=== PATIENT | female | born 1985 | race Caucasian/White ===

== ENCOUNTER 2017-04-03 19:55 | Emergency (ER) | payer OTHER ==
[~2017-04-03] VITALS: Ht 160 cm; Wt 74.8 kg
[2017-04-03] MEDS ORDERED: TRAMADOL HCL50 MG PO (22:18)
== END 2017-04-03 22:29 | disposition home or self-care (01) ==
LOC: ED 19:55
DX: S30.0XXA Contusion of lower back and pelvis, initial encounter (principal); W10.9XXA Fall (on) (from) unspecified stairs and steps, initial encounter
CPT/HCPCS: 72131; 81001; 84703; 99284

== ENCOUNTER 2017-06-22 09:18 | Emergency (ER) | payer OTHER ==
[~2017-06-22] VITALS: Ht 160 cm; Wt 74.8 kg
[~2017-06-22 09:18] MED LIST: TRAMADOL HCL50 MG PO
== END 2017-06-22 11:10 | disposition home or self-care (01) ==
LOC: ED 09:18
DX: S01.01XA Laceration without foreign body of scalp, initial encounter (principal); W22.8XXA Striking against or struck by other objects, initial encounter; Y99.0 Civilian activity done for income or pay
CPT/HCPCS: 99282

== ENCOUNTER 2017-08-22 10:30 | Emergency (ER) | payer OTHER ==
[~2017-08-22] VITALS: Ht 160 cm; Wt 78.5 kg
--- OUTSIDE RECORDS SUMMARY | ~2017-08-22 | XMS | Clinical Summary ---
Demographics + + + | Address | [address] | | | [place] [address] | + + + | Home Phone | | + + + | Preferred Language | Unknown | + + + | Marital Status | | + + + | Catholic Affiliation | 1013 | + + + | Race | Unknown | + + + | Ethnic Group | Unknown | + + + Author + + + | Author | [facility] | | | and [facility] | + + + | Organization | [facility] | | | and [place] | + + + | Address | Unknown | + + + | Phone | Unavailable | + + + Care Team Providers + +------+ + | Care Sponge Fisherman Name | Role | Phone | + +------+ + | No, Physician | PP | Unavailable | + +------+ + Allergies Not on File Current Medications Not on file Active Problems Not [...] on file | | + + + Last Filed Vital Signs + + + + | Vital Sign | Reading | Time Taken | + + + + | Blood Pressure | 128/78 | 09/27/2016 0809 PDT | + + + + | [...] | Body Mass Index | 35.04 | 09/27/2016808 PDT | + + + + Plan of Treatment + + + + + | Health Maintenance | Due Date | Last Done | Comments | + + + + + | Vaccine: | | | | | Dtap/Tdap/Td (1 - | 2 | | | | Tdap) | | | | + + + + + | CERVICAL CANCER | | | | | SCREENING (PAP EVERY | 4 | | | | 3 YEARS 21-64 ) | | | | + + + + + | Vaccine: Influenza | | | | | (Season Ended) | 8 | | | + + + + + Results Not on filefrom Last 3 Months
--- OUTSIDE RECORDS SUMMARY | ~2017-08-22 | XMS | Clinical Summary ---
Demographics + + + | Address | [address] | | | [place] [address] | + + + | Home Phone | | + + + | Preferred Language | Unknown | + + + | Marital Status | | + + + | Quaker Affiliation | 1013 | + + + | Race | Unknown | + + + | Ethnic Group | Unknown | + + + Author + + + | Author | [facility] | | | and [facility] | + + + | Organization | [facility] | | | and [place] | + + + | Address | Unknown | + + + | Phone | Unavailable | + + + Care Team Providers + +------+ + | Care Fish Icer Name | Role | Phone | + [...]
== END 2017-08-22 10:44 | disposition home or self-care (01) ==
LOC: ED 10:30
DX: R21 Rash and other nonspecific skin eruption (principal)

== ENCOUNTER 2017-10-12 16:59 | Emergency (ER) | payer MEDICAID ==
[~2017-10-12] VITALS: Ht 160 cm; Wt 78.5 kg
[2017-10-12] MEDS ORDERED: KEFLEX500 MG PO (18:15)
[2017-10-12] MEDS ORDERED: ZOFRAN ODT4 MG PO (18:15)
== END 2017-10-12 19:25 | disposition home or self-care (01) ==
LOC: ED 16:59
DX: O23.41 Unspecified infection of urinary tract in pregnancy, first trimester (principal); O21.9 Vomiting of pregnancy, unspecified; Z3A.08 8 weeks gestation of pregnancy
CPT/HCPCS: 81001; 84703; 87077; 87088; 87186; 96361; 96374; 96375; 99283; J0696; J2405; J7030

== ENCOUNTER 2018-05-10 19:48 | Inpatient (IN) | payer OTHER ==
[~2018-05-10 19:48] MED LIST changes: +KEFLEX500 MG PO; +ZOFRAN ODT4 MG PO
--- NOTE | 2018-05-11 00:12 | NUR ---
05/11/18 Ari2 [address] 6715-PATIENT ARRIVED TO PACU ON RA AWAKE DROWSY DENIES PAIN OR NAUSEA. SR. DAD AT BEDSIDE. FUNDUS MIDLINE FIRM 1 BELOW UMBILICUS LIGHT RUBRA DRAINAGE ON PRATIBHA PAD. FBC RN AT BEDSIDE HELPING MOM BREAST FEED. MOM REPORTS A LITTLE ITCHING TO FACE DENIES NEED FOR MEDICATION. IVF INFUSING WITH 20 PITOCIN TO LEFT ARM CDI.
--- NOTE | 2018-05-11 08:18 | OR ---
[facility] [address] [place], [place] [address] Signed DATE OF OPERATION: 05/10/2018 SURGEON: Li Downey MD PREOPERATIVE DIAGNOSES: Term , active labor, previous section xs 3, undesired fertility. POSTOPERATIVE DIAGNOSES: Term , active labor, previous section xs 3, undesired fertility, delivered. PROCEDURE PERFORMED: Repeat section with low segment transverse uterine incision, bilateral salpingectomy. ANESTHESIA: Spinal. ESTIMATED BLOOD LOSS: 600 mL. DRAINS: Roche catheter. INDICATIONS AND FINDINGS: The patient is a 33-year-old female, 4, para 3, admitted at 39 weeks in active labor. The patient had previously been counseled and had tubal ligation approved. At the time of surgery, she was delivered of a little girl via lower segment transverse uterine incision from the ROP position with Apgars of 9 and 9 and weight of 7 pounds 2 ounces. The lower segment was extremely thin. There was significant scarring in the fascial flaps. Both tubes were normal as were the ovaries and placenta. DESCRIPTION OF PROCEDURE: The patient was prepped and draped in the supine position. Prior Pfannenstiel scar was removed sharply. The incision was then carried down through the fascia and the incision extended laterally. The inferior and superior fascial flaps were then created with some difficulty because of scarring. The muscles were sharply dissected and the peritoneum entered at this time and the incision extended superiorly and inferiorly. The Theo retractor was placed. The uterine wall was scored and entered at the upper aspect of the peritoneal reflection. The uterine wall was extremely thin. The baby was delivered Electronically Signed By: LI DOWNEY MD 05/11/18 0818 PATIENT NAME: LAUREN LIMON OPERATIVE REPORT DATE OF : 81 REPORT #: [id number] PHYSICIAN: LI DOWNEY MD PCP: LEEROY CHUNG MD REPORT IS CONFIDENTIAL AND NOT TO BE RELEASED WITHOUT AUTHORIZATION [facility] [address] [place], [place] [address] Signed with the above findings and handed off to the pediatric staff in attendance. The placenta was removed manually and the uterus explored with a lap tape assuring no remaining fragments. The edges of the incision were identified and the uterus was closed in a single layer of 0 Monocryl. Good hemostasis was noted at that point. Pressure was applied to the incision and tubal ligation was begun. The patient's left tube was identified and windows in the mesosalpinx were created and the specimen removed with serial clamps of hemostat and division of the mesosalpinx. Each of these were then tied with free ties of 0 Vicryl. This excised the entire tube. An additional tie was required at the distal end as there was some bleeding. Following this, the same procedure was carried out on the patient's right side. Again, windows were created in the mesosalpinx and the mesosalpinx divided and the specimen excised. Each of the sections were tied with free ties of 0 Vicryl. Again, good hemostasis was noted. At this point, the left tubal ligation site was reinspected and found to be hemostatic as was the right. Evicel was placed over the tubal ligation sites to aid in hemostasis. The uterine incision was reexamined and found to be hemostatic. The abdomen was copiously irrigated and Evicel was placed over the uterine incision to aid in hemostasis as well. The retractor was removed and the peritoneum identified. An ACell graft was laid over the lower segment to aid in healing. The peritoneum was then closed with a running suture of 3-0 Vicryl. The muscles were brought together with interrupted sutures of 0 Vicryl. Bleeding points were controlled on the muscle. This layer was then irrigated and inspected and hemostasis was noted. ACell powder was sprinkled over the muscles to aid in healing. The fascia was then completely closed from each angle to the midline with a running suture of 0 Vicryl. The subcutaneous tissue was irrigated and bleeding points controlled with cautery. The tension was released on the lower portion of the incision to allow it to reapproximate better. The skin was closed with shaista. All sponge and needle counts were correct. The patient was taken to the recovery room in good condition. Li Downey MD PJW/MODL /[id number] cc: Leeroy Chung MD Electronically Signed By: LI DOWNEY MD 05/11/18 0818 PATIENT NAME: LAUREN LIMON OPERATIVE REPORT DATE OF : 81 REPORT #: [id number] PHYSICIAN: LI DOWNEY MD PCP: LEEROY CHUNG MD REPORT IS CONFIDENTIAL AND NOT TO BE RELEASED WITHOUT AUTHORIZATION [place] [address] Signed Copies: LEEROY CHUNG MD ~ Electronically Signed By: LI DOWNEY MD 05/11/18 0818 PATIENT NAME: LAUREN LIMON OPERATIVE REPORT DATE OF : 81 REPORT #: [id number] PHYSICIAN: LI DOWNEY MD PCP: LEEROY CHUNG MD REPORT IS CONFIDENTIAL AND NOT TO BE RELEASED WITHOUT AUTHORIZATION
--- NOTE | 2018-05-12 08:46 | PR ---
[facility] [address] [place], [place] [address] Signed PP Progress Notes Datetime Report Generated by KAYLIN: 05/12/2018 08:46 SUBJECTIVE: [id number] Pain: Within normal limits Pain Comments: Feels lightheaded when sitting up. Denies vertigo. Nausea/Vomiting: Denies Nausea/Vomiting Comments: DAVISON this am. Normally has coffee in am. Flatus: Yes Vital Signs: [id number] Vital Signs: Reviewed; Within Normal Limits EXAM: [id number] Cardiovascular: Normal Respiratory: Normal Abdomen/Uterus: Abnormal Lochia: Normal Vulva/Perineum: Not Done Breasts: Not Done CVA Tenderness: Not Done Extremities: Normal Incision: Normal Progress: Normal Exam Comments: Abdomen with active BS. Fundus firm, sl tender at U-1. H/H 8.9/27.1, WBC 6.7, plat 136k IMPRESSION/PLAN/PROCEDURES: [id number] Impression: Normal progression Other Impression: lt headed when up Other Plans: increase ambulation, shower, coffee Progress Notes: Overall doing well though ltheaded when up. Her H/H did not have significant drop and no vertigo at this time. Will increase ambulation slowly. She has DAVISON which is probably caffeine withdrawal. Signing Physician: Li Downey MD Copies: ~ *Electronically Signed* 05/12/18 0846 LI DOWNEY MD PATIENT NAME: LAUREN LIMON PROGRESS NOTE DATE OF : 81 PHYSICIAN: LI DOWNEY MD RPT #: [id number] REPORT IS CONFIDENTIAL AND NOT TO BE RELEASED WITHOUT AUTHORIZATION
--- NOTE | 2018-05-13 09:39 | PR ---
[facility] [address] [place], [place] [address] Signed PP Progress Notes Datetime Report Generated by CPJayson: 05/13/2018 09:39 SUBJECTIVE: [id number] Pain: Within normal limits Pain Comments: Taking quite a bit of oxycodone for pain Nausea/Vomiting: Denies Nausea/Vomiting Comments: DAVISON this am. Normally has coffee in am. Flatus: Yes Vital Signs: [id number] Vital Signs: Reviewed; Within Normal Limits EXAM: [id number] Cardiovascular: Not Done Respiratory: Not Done Abdomen/Uterus: Abnormal Lochia: Normal Vulva/Perineum: Not Done Breasts: Not Done CVA Tenderness: Not Done Extremities: Normal Incision: Normal Progress: Normal Exam Comments: Abdomen with active BS. Fundus firm, NT @ U-1. IMPRESSION/PLAN/PROCEDURES: [id number] Impression: Normal progression Other Impression: lt headed when up Plan: Discharge Other Plans: increase ambulation, shower, coffee Procedures: None Progress Notes: Doing well though has been taking quite a bit of narcotics. She is stable for D/C. Signing Physician: Li Downey MD Copies: ~ *Electronically Signed* 05/13/18 0939 LI DOWNEY MD PATIENT NAME: LAUREN LIMON PROGRESS NOTE DATE OF : 81 PHYSICIAN: LI DOWNEY MD RPT #: [id number] REPORT IS CONFIDENTIAL AND NOT TO BE RELEASED WITHOUT AUTHORIZATION
== END 2018-05-13 14:10 | disposition home or self-care (01) | DRG 785 ==
LOC: FBCO 19:48 → FBC 21:35
PROVIDERS: ADMIT Obstetrics & Gynecology
PROC: 0UT70ZZ Resection of Bilateral Fallopian Tubes, Open Approach (ICD-10-PCS; 2018-05-10)
PROC: 10D00Z1 Extraction of Products of Conception, Low, Open Approach (ICD-10-PCS; principal; 2018-05-10 23:20)
DX: O34.211 Maternal care for low transverse scar from previous cesarean delivery (principal); N85.8 Other specified noninflammatory disorders of uterus; Z3A.39 39 weeks gestation of pregnancy; Z37.0 Single live birth; Z30.2 Encounter for sterilization; O69.81X0 Labor and delivery complicated by cord around neck, without compression, not applicable or unspecified; O28.2 Abnormal cytological finding on antenatal screening of mother; O99.89 Other specified diseases and conditions complicating pregnancy, childbirth and the puerperium; R51 Headache
CPT/HCPCS: 01961; 36415; 59025; 85027; 88302; 99213; C1763; J0690; J1200; J2274; J2300; J2405; J2590; J3010; J7120

== ENCOUNTER 2018-09-28 17:03 | Emergency (ER) | payer BC ==
[~2018-09-28] VITALS: Ht 160 cm; Wt 71.2 kg
--- OUTSIDE RECORDS SUMMARY | ~2018-09-28 | XMS | Clinical Summary ---
Demographics + + + | Address | [address] | | | [place] [address] | + + + | Home Phone | | + + + | Preferred Language | Unknown | + + + | Marital Status | | + + + | Sabianist Affiliation | 1013 | + + + | Race | Unknown | + + + | Ethnic Group | Unknown | + + + Author + + + | Author | [facility] | | | [facility] | + + + | Organization | [facility] | | | and [place] | + + + | Address | Unknown | + + + | Phone | Unavailable | + + + Care Team Providers + +------+ + | Care Line Installer Trolley Name | Role | Phone | + +------+ + | No, Physician | PP | Unavailable | + +------+ + Allergies Not on File Medications Not on file Active Problems Not on file Social History + +-------+ +--------+------+ | Tobacco Use | Types | Packs/Day | Years | Date | | | | | Used | | + +-------+ +--------+------+ | Never Assessed | | | | | + +-------+ +--------+------+ + + + | Sex Assigned at | Date Recorded | | | | + + + | Not on file | | + + + + + + + | Job Start Date | Occupation | Industry | + + + + | Not on file | Not on file | Not on file | + + + + + + + + | Travel History | Travel Start | Travel End | + + + + + + | No recent travel history available. | + + Last Filed Vital Signs + + + + | Vital Sign | Reading | Time Taken | + + + + | Blood Pressure | 128/78 | 09/27/2016808 PDT | + + + + | Pulse | 74 | 09/27/2016808 PDT | + + + + | Temperature | 36.7 C (98 F) | 09/27/2016808 PDT | + + + + | Respiratory Rate | 15 | 09/27/2016808 PDT | + + + + | Oxygen Saturation | 98% | 09/27/2016808 PDT | + + + + | Inhaled Oxygen | - | - | | Concentration | | | + + + + | Weight | 86.4 kg (190 lb 6.3 | 09/27/2016808 PDT | | | oz) | | + + + + | Height | 157 cm (5' 1.81") | 09/27/2016808 PDT | + + + + | Body Mass Index | 35.04 | 09/27/2016 0809 PDT | + + + + Plan of Treatment + + + + + | Health Maintenance | Due Date | Last Done | Comments | + + + + + | Vaccine: | | | | | Dtap/Tdap/Td (1 - | 2 | | | | Tdap) | | | | + + + + + | Cervical Cancer | | | | | Screening (Pap) | 3 | | | + + + + + | Vaccine: Influenza | | | | | (Season Ended) | 9 | | | + + + + + Results Not on filefrom Last 3 Months
--- OUTSIDE RECORDS SUMMARY | ~2018-09-28 | XMS | Clinical Summary ---
Demographics + + + | Address | [address] | | | [place] [address] | + + + | Home Phone | | + + + | Preferred Language | Unknown | + + + | Marital Status | | + + + | Muslim Affiliation | 1013 | + + + | Race | Unknown | + + + | Ethnic Group | Unknown | + + + Author + + + | Author | [facility] | | | and [facility] | + + + | Organization | [facility] | | | and [place] | + + + | Address | Unknown | + + + | Phone | Unavailable | + + + Care Team Providers + +------+ + | Care Hospital Education Coordinator Name | Role | Phone | + [...]
[2018-09-28] MEDS ORDERED: ZOFRAN4 MG SL (18:50)
[2018-09-28] MEDS ORDERED: IBUPROFEN600 MG PO (18:50)
== END 2018-09-28 19:23 | disposition home or self-care (01) ==
LOC: ED 17:03
DX: G43.909 Migraine, unspecified, not intractable, without status migrainosus (principal)
CPT/HCPCS: 70450; 80053; 85025; 96361; 96374; 96375; 99284-25; J1200; J1885; J2765; J7030

== ENCOUNTER 2019-10-10 08:05 | Day surgery (SDC) | payer BC ==
[~2019-10-10] VITALS: Ht 160 cm; Wt 77.1 kg
[~2019-10-10 08:05] MED LIST changes: +IBUPROFEN600 MG PO; +ZOFRAN4 MG SL
--- NOTE | 2019-10-10 09:27 | NUR ---
0923: PATIENT TOLERATED PROCEDURE WELL. RIGHT ARM BANDAID CDI. VS CHECKED. PATIENT GETTING DRESSED. PATIENT EDUCATED ON SIGNS/SYMPTOMS OF SURIGCAL SITE INFECTION, WHEN TO REMOVE BANDAID, AND TO KEEP BANDAID DRY UNTIL REMOVAL. 0925: PATIENT DISCHARGED TO HOME AMBULATORY.
--- NOTE | 2019-10-11 10:11 | OR ---
[facility] [address] [place], [place] [address] Signed DATE OF OPERATION: 10/10/2019 SURGEON: Torey Pedro MD PREOPERATIVE DIAGNOSIS: Painful right upper arm soft tissue mass. POSTOPERATIVE DIAGNOSIS: Painful right upper arm soft tissue. MASS.PROCEDURE: Ultrasound-guided core biopsy of right upper arm soft tissue mass. ANESTHESIA: A 1% lidocaine. INDICATION: This 34-year-old white woman is a patient of STEPHANIE Sheldon. She was noted to have a painful enlarging mass of her right upper arm. This has been present for quite some time. She works at a local [employer] and notices the pain more commonly. 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 Consideration for excision of mass has been made and Biopty gun biopsy was obtained of the lesion, but the pathology report was rather nondiagnostic. Although, I thought likely to have truly encountered the soft tissue mass in question, ultrasound-guided biopsy may be more accurate. If this is a nerve sheath tumor, operation would be undertaken to excise it with meticulous care, but without having to have muscle margins in the same way that a sarcoma would require. On that basis, she is now for biopsy for more definitive diagnosis to allow for excision. The risks of bleeding, infection, and so forth were reviewed with her. She understands and wished to proceed. FINDINGS: The ultrasonographic evaluation was quite good. Under direct visualization, the Biopty gun biopsy was obtained of the mass, 2 very good core biopsies were obtained and a somewhat amorphous additional core biopsy obtained. DESCRIPTION OF PROCEDURE: In a semi-recumbent position in the Day Surgery area, the right arm was evaluated with the ultrasound, the mass was easily identified. The arm was then prepared with a chlorhexidine solution and 1% lidocaine with epinephrine was injected locally. Sterile Electronically Signed By: TOREY PEDRO MD 10/11/19 1011 PATIENT NAME: LAUREN LIMON OPERATIVE REPORT DATE OF : 81 REPORT #: [id number] PHYSICIAN: TOREY PEDRO MD PCP: SLIME KRAMER REPORT IS CONFIDENTIAL AND NOT TO BE RELEASED WITHOUT AUTHORIZATION [facility] [address] [place] [id number] Signed technique including glove, gown and so forth, a sterile sheath was placed over the ultrasound probe. The lesion was once again identified. A small incision was made at the anesthetized spot with an #11 blade. The 14-gauge Biopty gun needle was positioned into place and confirmed with the ultrasound to be in the lesion in question. Biopsy was obtained. It was well tolerated. Two additional biopsies of the similar types were taken with similar technique. Pressure was applied to the area as well as a Band-Aid. There was no untoward bleeding or sign of expanding hematoma or other problem. The patient tolerated the procedure well. MD CASSIDY Humphreys/RAPHAEL /[id number] cc: STEPHANIE Sheldon Copies: ~ Electronically Signed By: TOREY PEDRO MD 10/11/19 1011 PATIENT NAME: ASHLYLAURENJayson NOWAKE OPERATIVE REPORT DATE OF : 81 REPORT #: [id number] PHYSICIAN: TOREY PEDRO MD PCP: SLIME KRAMER REPORT IS CONFIDENTIAL AND NOT TO BE RELEASED WITHOUT AUTHORIZATION
--- NOTE | 2019-10-15 16:54 | PATH ---
[facility] [address] [place], [place] [address] Signed SPECIMEN(S): A RIGHT UPPER ARM MASS SPECIMEN SOURCE: A. RIGHT UPPER ARM MASS CLINICAL HISTORY: Excision, soft tissue mass of right upper arm. 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 - See Comment. COMMENT: Sections demonstrate nests and sheets of small, round uniform tumor cells with pale eosinophilic cytoplasm with a central nucleus. The background hyalinized stroma has a mixture of small and larger, ectatic blood vessels. Tumor cells are seen cuffing around larger vessels. No nuclear atypia, significant mitoses, or atypical mitoses are seen. Immunohistochemical stains (with appropriately staining controls) were performed. The tumor cells are positive for SMA and negative for pancytokeratin (AE1/AE3), S100, and synaptophysin. Per imaging report, the tumor is 5.8 cm in greatest dimension). 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 As part of [facility] Quality Improvement Program, this case was reviewed by another member of our pathology staff. NAL:cml:C2NR MICROSCOPIC EXAMINATION: Histologic sections of all submitted blocks are examined by light microscopy. These findings, together with the gross examination, support the pathologic diagnosis. GROSS DESCRIPTION: The specimen, labeled ", A.," and designated on the requisition "right upper arm," is received in formalin and consists of four thin cason tissue cores and fragments measuring up to 0.1 cm in diameter and ranging 0.7 to 1.5 cm in length. Tissue cores and fragments are inked with PATIENT NAME: LAUREN LIMON PATHOLOGY DATE OF : 81 REPORT #: [id number] PHYSICIAN: ANTWAN PATHOLOGY PCP: SLIME KRAMER REPORT IS CONFIDENTIAL AND NOT TO BE RELEASED WITHOUT AUTHORIZATION [facility] [address] [place], [place] [address] Signed eosin and entirely submitted in cassette (A1). AT (under the direct supervision of a pathologist) The Gross Description was prepared using a voice recognition system. The report was reviewed for accuracy; however, sound-alike word errors, addition and/or deletions may occur. If there is any question about this report, please contact Client Services. ADDITIONAL NOTES: Immunohistochemical and/or in situ hybridization studies were performed on this case with the appropriate positive controls that react as expected. This test was developed and its performance characteristics determined by [facility]. It has not been cleared or approved by the U.S. Food and Drug Administration. The FDA has determined that such clearance or approval is not necessary. This test is used for clinical purposes. It should not be regarded as investigational or for research. [facility] is certified under the Clinical Laboratory Improvement Amendments of 1988 (CLIA) as qualified to perform high complexity clinical laboratory testing. PERFORMING LABORATORY: The technical component was performed by [facility], [address] [place] [address] (Prop Setter: Karma Sparrow MD; CLIA# [id number]). [facility] [place] [facility], [address] [address] (CLIA# [id number]). Diagnostician: Dee Dee Esquivel MD Pathologist Electronically Signed 10/15/2019 Copies: ~ PATIENT NAME: LAUREN LIMON PATHOLOGY DATE OF : [birth year] REPORT #: [id number] PHYSICIAN: ANTWAN CASTRO PCP: SLIME KRAMER REPORT IS CONFIDENTIAL AND NOT TO BE RELEASED WITHOUT AUTHORIZATION
== END 2019-10-10 18:00 | disposition home or self-care (01) ==
LOC: OPS 08:05 → DS 08:08 → OPS 08:30
PROC: 0KB73ZX Excision of Right Upper Arm Muscle, Percutaneous Approach, Diagnostic (ICD-10-PCS; principal; 2019-10-10)
PROC: BH47ZZZ Ultrasonography of Upper Extremity (ICD-10-PCS; 2019-10-10)
DX: M79.89 Other specified soft tissue disorders (principal)

== ENCOUNTER 2019-11-12 08:34 | Day surgery (SDC) | payer BC ==
[~2019-11-12] VITALS: Ht 160 cm; Wt 77.1 kg
[2019-11-12] MEDS ORDERED: TYLENOL EXTRA500 MG PO ×4 (08:54→11:50)
--- NOTE | 2019-11-12 11:32 | NUR ---
11/12/19 [address] 1123-PATIENT ARRIVED TO PACU ON 6L MASK AWAKE DROWSY REPORTS PAIN TO RIGTH ARM 05/17. SR. DRESSING TO RIGHT ARM HAS SMALL AMT OF SHADOWING. RUBÉN DRAIN IN PLACE. IVF INFUSING. 1130-PATIENT REPORTS "A LITTLE RIGHT SHOULDER PAIN" EYES CLOSED. RR EVEN.
[2019-11-12] MEDS ORDERED: OXYCODONE HCL5 MG PO ×2 (11:50)
[2019-11-12] MEDS ORDERED: IBUPROFEN600 MG PO ×2 (11:50)
--- NOTE | 2019-11-12 12:24 | NUR ---
1205: PATIENT BACK IN DAY SURGERY ROOM FROM PACU. RIGHT UPPER ARM DRESSING WITH SMLL AMOUNT OF DRAINAGE. RUBÉN DRAIN TO RIGHT ARM SURGICAL SITE. C/O 6/10 PAIN IN RIGHT SHOULDER AREA. GIVEN JELLO AND PUDDING TO EAT BEFORE PAIN MEDS. VS CHECKED. IV SITE WNL. SCDs ON. C/O DIZZINESS. COOL WASHCLOTH TO FOREHEAD PER REQUEST. CALL LIGHT WITHIN REACH. 1222: PATIENT TOLERATED JELLO AND PUDDING. MEDICATED FOR PAIN WITH 2 TABS OF OXYCODONE. PATIENT GIVEN WARM BLANKET. LIGHTS DIMMED. PATIENT RESTING. CALL LIGHT WITHIN REACH.
--- NOTE | 2019-11-12 13:08 | NUR ---
PATIENT AWAKENED FOR VS. VSS. STATES PAIN IMPROVED. CALL LIGHT WITHIN REACH. PATIENT GOING BACK TO SLEEP.
--- NOTE | 2019-11-12 14:07 | NUR ---
PATIENT AWAKENED FOR VS. VSS. PATIENT CONTINUES TO C/O DIZZINESS. RIGHT UPPER ARM DRESSING WITH SMALL AMOUNT OF DRAINAGE. RUBÉN DRAIN INTACT WITH MINIMAL DRAINAGE IN BULB. CSM TO RIGHT FINGERS WNL. IV SITE WNL. SCDs ON. LUNCH ORDERED FOR PATIENT. CALL LIGHT WITHIN REACH.
--- NOTE | 2019-11-12 15:21 | NUR ---
PATIENT TOLERATED SOUP AND SANDWICH. ATTEMPTED TO GET OOB, BUT PATIENT BECAME INCREASINGLY DIZZY WHILE SITTING ON SIDE OF BED. PATIENT NOW LAYING BACK IN BED. ICE WATER REFILLED. CALL LIGHT WITHIN REACH.
--- NOTE | 2019-11-12 16:22 | NUR ---
1540: PATIENT ASSISTED OOB AND TO BATHROOM. C/O DIZZINESS. GAIT STEADY. VOID WITHOUT DIFFICULTY. GAIT STEADY BACK TO ROOM. PATIENT WISHES TO GO HOME. 1600: DRAIN CARE TAUGHT TO PATIENT. PATIENT VERBALIZES UNDERSTANDING OF DRAIN CARE. GIVEN DRAIN OUTPUT RECORD SHEET WITH DISCHARGE INSTRUCTIONS. DISCHARGE INSTRUCTIONS GIVEN TO PATIENT AND FRIEND. IV DC'D WNL. TIP INTACT. DRESSING APPLIED. 1605: PATIENT DISCHARGED TO HOME VIA WHEELCHAIR WITH FRIEND.
--- NOTE | 2019-11-14 21:34 | OR ---
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 PROCEDURE PERFORMED: Excision of soft tissue tumor of right upper extremity including excision of portion of nerve in continuity with neurilemmoma. 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 INDICATION: This 34-year-old white woman is a patient of STEPHANIE Sheldon. She was referred with findings of a painful right upper arm mass in the lateral anterior aspect. The lesion did not appear typical of a lipoma and was tender to the touch and rather bulky and large. Imaging studies included a CT scan to assess for possible sarcoma. An MRI was considered however the patient has a metal facial piercing that would require operative excision as it is not removable otherwise. The CT scan showed the lesion to be within the substance of the brachialis muscle on the right side. She did have some numbness and tingling in the distribution of the postero lateral lower arm distribution. A core biopsy was performed, which was nondiagnostic and subsequently an ultrasound-guided core biopsy performed by wy on October 10, 2019, which confirmed a high probability of a neurilemmoma (nerve sheath) tumor. She is admitted at this time to undergo excision of the mass as it is large and very symptomatic. She understands well the risks of bleeding, infection, nerve injury Electronically Signed By: TOREY PEDRO MD 11/14/19 2134 PATIENT NAME: LAUREN LIMON OPERATIVE REPORT DATE OF : 81 REPORT #: [id number] PHYSICIAN: TOREY PEDRO MD PCP: SLIME KRAMER REPORT IS CONFIDENTIAL AND NOT TO BE RELEASED WITHOUT AUTHORIZATION [facility] [address] [place], [place] [address] Signed (including major nerve injury to possible radial nerve), muscular dysfunction short or long-term, and need for additional treatment, particularly should malignancy be found including the unlikely possibility of sarcoma after all. Understanding all this, she wishes to proceed. FINDINGS: The tumor was indeed within the substance of the brachialis muscle. I would say within the central portion of it. Complete excision of the tumor was undertaken of a smooth tumor highly typical of a neurilemmoma. the distal portion of the nerve itself was excised in continuity with it as it did not appear to be the radial nerve proper, but possibly a musculocutaneous nerve branch. Salvage of this nerve was quite impossible. Photographs were taken affirming this. A drain was placed as well. Nerve testing in the recovery room confirmed no clinically definable nerve deficit. DESCRIPTION OF PROCEDURE: The patient was brought to the operating room and given a general endotracheal anesthetic. A COVID-19 test was negative as was a preoperative test. After satisfactory general endotracheal anesthesia, the entire right arm was prepared with a chlorhexidine solution and draped sterilely. The palpable bulky abnormality in the upper arm on the right side in the anterolateral aspect was photographed. An incision was made in the axial direction and dissection carried through the skin with sharp dissection and electrocautery dividing the subcutaneous tissue. The bulky mass was easily identified and appeared to have muscular fibers over it as suggested by her CT scan findings. Dissection was carried proximally and distally and the area appeared to be well defined. It did not appear to be infiltrative to the muscle but simply within the substance of the muscle itself. The muscle was incised along its muscle fibers using electrocautery and securing hemostasis in that way. The muscle was consided the brachialis muscle-- between the triceps muscle laterally, and the biceps medially. Further dissection was then undertaken enucleating the lesion. Distally, it appeared to have no exiting nerve fibers per se, and it was thought that it was a neurilemmoma with bulky extension away from the nerve more proximally. Extreme care was taken proximally and dissecting it free as concerns were maintained on the possibility of it emanating from the radial nerve proper. Ultimately, it was found that the nerve was likely a small branch of the radial nerve or more likely a branch of the musculocutaneous nerve. The nerve was divided as it was unsalvageable otherwise and marked with a Prolene suture on the unlikely possibility it Electronically Signed By: TOREY PEDRO MD 11/14/19 2134 PATIENT NAME: LAUREN LIMON OPERATIVE REPORT DATE OF : 81 REPORT #: [id number] PHYSICIAN: TOREY PEDRO MD PCP: SLIME KRAMER REPORT IS CONFIDENTIAL AND NOT TO BE RELEASED WITHOUT AUTHORIZATION [facility] [address] [place] [id number] Signed represented a major nerve branch requiring further attention in the future. Clips were applied at the origin of the nerve tumor for marking for future imaging as necessary. Complete and total excision of the tumor was assured. The specimen was passed for permanent pathology. Irrigation was undertaken. The muscular layer was largely hemostatic. A few small areas required electrocautery and some Wili was applied as well. Closure of the brachialis muscle was undertaken with interrupted 2-0 Vicryl after placing a 7 mm flat Felipe drain in the bed of the excision area on the possibility of postoperative wound seepage. The drain exited medial to the incision itself just above the antecubital space. This secured the skin with nylon suture. The subcutaneous layer was reapproximated with interrupted 2-0 Vicryl and skin closed with running subcuticular 3-0 Vicryl. Steri-Strips were applied as was a silver sponge dressing and an OpSite. The patient was ultimately extubated and transferred to the recovery room in good condition. Neurologic testing in recovery room showed good function of the radial nerve affirming that the radial nerve proper had not been harmed in any way. MD CASSIDY Humphreys/KIRSTIEL /[id number] cc: STEPHANIE Sheldon MD Copies: ANDRÉS GONZALEZ MD ~ Electronically Signed By: TOREY PEDRO MD 11/14/19 2134 PATIENT NAME: LAUREN LIMON OPERATIVE REPORT DATE OF : 81 REPORT #: [id number] PHYSICIAN: TOREY PEDRO MD PCP: SLIME KRAMER REPORT IS CONFIDENTIAL AND NOT TO BE RELEASED WITHOUT AUTHORIZATION
--- NOTE | 2019-11-15 16:23 | PATH ---
[facility] [address] [place], [place] [address] Signed SPECIMEN(S): A RIGHT UPPER ARM SPECIMEN SOURCE: A. RIGHT UPPER ARM CLINICAL HISTORY: Right upper arm nerve sheath tumor. Posterior lateral humeral soft tissue mass. Excision soft tissue mass, right arm. 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 - Tumor is present at inked surgical margin. COMMENT: The size of the tumor (5.0 cm in greatest dimension) is considered an atypical feature of glomus tumors and is therefore classified as a glomus tumor of uncertain malignant potential. As part of [employer] Quality Improvement Program, this case was reviewed by another member of our pathology staff. NAL:BES :cml:C1NR MICROSCOPIC EXAMINATION: Histologic sections of all submitted blocks are examined by light microscopy. These findings, together with the gross examination, support the pathologic diagnosis. GROSS DESCRIPTION: The specimen, labeled "MS, right upper arm, nerve sheath tumor," is received in formalin and consists of irregular shaped, soft, smooth tissue fragment that measures 5.0 x 3.5 x 1.7 cm. The surface is pink-cason and focally congested. Specimen is inked. Sectioning through the specimen reveals pink-cason, homogenous tissue with cyst-like defect that measures 1.2 cm in greatest dimension. The cyst-like defect is empty. Edger Tailer sections are submitted in cassettes (A1-A3). JS (under the direct supervision of a pathologist) The Gross Description was prepared using a voice recognition system. The report was reviewed for accuracy; however, sound-alike word errors, addition and/or deletions may occur. If there is any question about this report, please contact Client Services. PATIENT NAME: LAUREN LIMON PATHOLOGY DATE OF : 81 REPORT #: [id number] PHYSICIAN: ANTWAN CASTRO PCP: SLIME KRAMER REPORT IS CONFIDENTIAL AND NOT TO BE RELEASED WITHOUT AUTHORIZATION [facility] [address] [place] [address] Signed PERFORMING LABORATORY: The technical component was performed [place] [address] (Candy Depositing Machine Operator: Karma Sparrow MD; CLIA# [id number]). Professional interpretation was performed by [facility], [address] [address] (CLIA# [id number]). Diagnostician: Dee Dee Esquivel MD Pathologist Electronically Signed 11/15/2019 Copies: ~ PATIENT NAME: LAUREN LIMON PATHOLOGY DATE OF : 81 REPORT #: [id number] PHYSICIAN: ANTWAN CASTRO PCP: SLIME KRAMER REPORT IS CONFIDENTIAL AND NOT TO BE RELEASED WITHOUT AUTHORIZATION
== END 2019-11-12 16:05 | disposition home or self-care (01) ==
LOC: DS 08:34 → OPS 08:34 → DS 09:00 → OPS 09:00 → DS 09:30 → OPS 11:00
PROVIDERS: Surgery
PROC: 0JBD0ZZ Excision of Right Upper Arm Subcutaneous Tissue and Fascia, Open Approach (ICD-10-PCS; principal; 2019-11-12 09:00)
DX: D18.01 Hemangioma of skin and subcutaneous tissue (principal)
CPT/HCPCS: 00400; 84703; J0690; J1100; J1644; J1885; J2001; J2405; J2704; J3010; J7121

== ENCOUNTER 2019-11-15 20:09 | Emergency (ER) | payer BC ==
[~2019-11-15] VITALS: Ht 160 cm; Wt 77.1 kg
[~2019-11-15 20:09] MED LIST changes: +OXYCODONE HCL5 MG PO; +TYLENOL EXTRA500 MG PO
--- NOTE | 2019-11-16 04:26 | CONS ---
[facility] [address] [place], [place] [address] Signed DATE OF CONSULTATION: 11/15/2019 TIME: 09:20 p.m. REQUESTING PHYSICIAN: Dr. Aragon. PROBLEM: Mild erythema of right arm, sensory changes. HISTORY: This pleasant 34-year-old white woman was recently operated on by me on Monday this week (today is Monday). This included resection of a Schwann cell tumor (neurilemmoma) of the nerve coursing through the right brachialis muscle, likely musculocutaneous nerve or musculocutaneous nerve branch. A drain was placed at that time. She did not lose much blood. She presented to the emergency room with sensory changes in the nerve distribution of musculocutaneous nerve in the right forearm in the anteroposterior aspect. This was a long-standing finding prior to operation as well. She has had known muscular dysfunction or anything of that sort, but she was concerned regarding this early in the day. I spoke with her on the phone and she noted that the drainage had decreased and so on. She is afebrile and having no systemic symptoms of infection. She was evaluated by Dr. Aragon and mild erythema in the region of the incision was noted. On that basis, I was asked to see her. PHYSICAL EXAMINATION: GENERAL: She looks well overall. She is nontoxic. EXTREMITIES: Movement of her arm and hand is normal. There is mild numbness of the forearm as expected in the distribution of the nerve resected (musculocutaneous nerve branch). The drain has only serous fluid. The drain was removed without problem. She has expected mild edema in the area of the incision and mild erythema as expected. There is local warmth. This does not appear to be cellulitis or wound infection proper. ASSESSMENT AND PLAN: She does not have an infection and unlikely to have impending cellulitis. However, this appears to be typical of the operation performed. To be on the safe side, I will prescribe Keflex 500 mg p.o. t.i.d. for a few days. She is due to see me on Monday (initially for drain removal), we will assess her wound at that time as well. If she has other problems, she will let me know. I have given her my cell phone number. Electronically Signed By: TOREY PEDRO MD 11/16/19 0426 PATIENT NAME: LAUREN LIMON CONSULTATION DATE OF : 81 REPORT #: [id number] PHYSICIAN: TOREY PEDRO MD PCP: PATRICIA KRAMER REPORT IS CONFIDENTIAL AND NOT TO BE RELEASED WITHOUT AUTHORIZATION [address] [address] Signed MD CASSIDY Humphreys/RAPHAEL /[id number] cc: MD Patricia Holm FNP Copies: PHYLICIA ARAGON MD ~ Electronically Signed By: TOREY PEDRO MD 11/16/19 0426 PATIENT NAME: LAUREN LIMON CONSULTATION DATE OF : 81 REPORT #: [id number] PHYSICIAN: TOREY PEDRO MD PCP: PATRICIA KRAMER REPORT IS CONFIDENTIAL AND NOT TO BE RELEASED WITHOUT AUTHORIZATION
== END 2019-11-15 21:51 | disposition home or self-care (01) ==
LOC: ED 20:09
DX: Z48.01 Encounter for change or removal of surgical wound dressing (principal)
CPT/HCPCS: 99282

== ENCOUNTER 2024-07-28 00:01 | Emergency (ER) | payer OTHER ==
[~2024-07-28] VITALS: Ht 160 cm; Wt 81.0 kg
[~2024-07-28 00:01] MED LIST changes: +CEPHALEXIN500 M1 PO; +SUBOXONE 8 MG-1 EAC1
--- OUTSIDE RECORDS SUMMARY | 2024-07-28 00:08 | XMS ---
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: [facility] FAMILY PHONE: [phone] [place] has no Care Guidelines for this patient. E.D. VISIT COUNT (12 MO.) 2 [facility] TOTAL 2 NOTE: Visits indicate total known visits. ED/UCC VISIT TRACKING (12 MO.) 07/28/2024 00:02 [facility] TYPE: Emergency COMPLAINT: - HEAD PAIN 07/27/2024 18:02 [facility] TYPE: Emergency COMPLAINT: - HEAD PAIN INPATIENT VISIT TRACKING (12 MO.) No inpatient visits to display in this time frame [email or web address]
[2024-07-28] MEDS ORDERED: ONDANSETRON ODT8 MG PO (02:06)
[2024-07-28] MEDS ORDERED: CEPHALEXIN500 M1 PO (02:06)
[2024-07-28] MEDS ORDERED: ONDANSETRON 4 MG HOME.PACK SL ONE (02:15)
[2024-07-28] MEDS ORDERED: CEPHALEXIN MONOHYDRATE 500 MG HOME.PACK PO ONE (02:15)
[2024-07-28 02:23] VITALS: BP 111/79
== END 2024-07-28 02:23 | disposition home or self-care (01) ==
LOC: ED 00:01
DX: J06.9 Acute upper respiratory infection, unspecified (principal); H66.92 Otitis media, unspecified, left ear; Z88.1 Allergy status to other antibiotic agents; Z79.2 Long term (current) use of antibiotics
CPT/HCPCS: 99283; A9270